=== PATIENT | male | born 1960 | race African-American/Black ===

== ENCOUNTER 2016-05-26 10:30 | Inpatient (IN) | payer OTHER ==
[~2016-05-26] VITALS: Ht 172.7 cm; Wt 79.0 kg
[~2016-05-26 10:30] MED LIST: ASPIR-LOW81 MG PO; ASPIRIN81 M2 PO; ATORVASTATIN CA80 MG PO; CARVEDILOL12.5 MG PO; EFFIENT10 MG PO; GLIPIZIDE10 MG PO; LANTUS 3 M100 UNITS1 SC; LASIX40 MG PO; LEVEMIR100 UNIT/1 SC; LEVEMIR100 UNIT/2 SC; LISINOPRIL PO; LISINOPRIL10 MG PO; METFORMIN HCL500 MG PO; METOPROLOL PO; NOVLOG SC; NOVOLOG 10100 UNITS/ SC
[2016-05-26 11:25] LABS: BASOPHIL COUNT 0.1 K/uL (0-0.1); EOSINOPHIL (%) 3.9 % (0-5); EOSINOPHIL COUNT 0.2 K/uL (0-0.3); HEMATOCRIT 35.4 % (38.0-50.0); IMMATURE GRANULOCYTE (%) 0.2 % (0.0-0.7); IMMATURE GRANULOCYTE COUNT 0.1 K/uL; LYMPHOCYTE COUNT 1.4 K/uL (1.0-2.8); MCH 29.1 PG (29.0-34.0); MCHC 33.3 G/DL (30.0-36.0); MCV 87.4 FL (86-99); MEAN PLAT.VOLUME 11.4 uM^3 (9.0-12.4); MONOCYTE (%) 8.5 % (3-12); MONOCYTE COUNT 0.4 K/uL (0-0.8); NEUTROPHIL (%) 57.8 % (45-76); NEUTROPHIL COUNT 2.8 K/uL (1.8-6.4); PLATELET COUNT 177 K/uL (156-360); RBC DIS.WIDTH-CV 13.7 % (11.8-14.6); RBC DIS.WIDTH-SD 42.4 % (39-53); RED BLOOD COUNT 4.05 M/uL (4.00-5.50); WHITE BLOOD COUNT 4.8 K/uL (4.1-10.2)
[2016-05-26 11:35] LABS: INTER. NORMALIZED RATIO 1.1; PROTHROMBIN TIME 10.9 (9.2-11.2)
[2016-05-26 11:36] LABS: CHLORIDE 109 mEq/L (99-109); POTASSIUM 4.3 mEq/L (3.7-5.4); SODIUM 139 mEq/L (136-147)
[2016-05-26 11:38] LABS: GLUCOSE 151 mg/dL (70-99)
[2016-05-26 11:40] LABS: ANION GAP 6 MEQ/L (2-14)
[2016-05-26 11:42] LABS: GFR ESTIMATE (CALCULATED) > 59 mL/min/
[2016-05-26 11:43] LABS: UREA NITROGEN (BUN) 11 mg/dL (9-23)
[2016-05-26 11:50] LABS: TROP-I INTERPRETATION POSITIVE
[2016-05-26] MEDS ORDERED: EFFIENT10 MG PO (12:16)
[2016-05-26] MEDS ORDERED: LASIX40 MG PO (12:17)
[2016-05-26] MEDS ORDERED: LO-DOSE ASPIRIN81 M2 PO (12:17)
[2016-05-26] MEDS ORDERED: PRINIVIL20 MG PO (12:17)
[2016-05-26] MEDS ORDERED: CLOPIDOGREL75 MG PO (12:17)
[2016-05-26] MEDS ORDERED: LANTUS 10100 UNITS/ SC (12:22)
[2016-05-26 13:47] LABS: MAGNESIUM 1.7 mg/dL (1.3-2.7)
[2016-05-26 14:45] VITALS: BP 160/93
[2016-05-26 14:49] VITALS: BP 160/93
[2016-05-26 17:47] LABS: POINT-OF-CARE USER ID NUTSLF44
[2016-05-26 19:03] LABS: TROP-I INTERPRETATION POSITIVE
[2016-05-26 19:04] LABS: TROPONIN-I 2.88 ng/mL (0.0-0.30)
[2016-05-26 20:00] VITALS: BP 157/94
[2016-05-26 21:03] LABS: POINT-OF-CARE METER ID UU14174216
[2016-05-27] VITALS: BP 144/82
[2016-05-27 05:08] VITALS: BP 150/69
[2016-05-27 05:29] LABS: POINT-OF-CARE METER ID UU13113781
[2016-05-27 06:08] LABS: GLUCOSE 199 mg/dL (70-99)
[2016-05-27 07:30] VITALS: BP 122/68
[2016-05-27 09:35] LABS: GLUCOSE 88 mg/dL (70-99)
[2016-05-27 11:28] LABS: POINT-OF-CARE METER ID UU13113781
[2016-05-27 11:28] LABS: POINT-OF-CARE METER ID UU13113698
[2016-05-27 15:06] LABS: ADD MIUA? YES; BILIRUBIN NEGATIVE; BLOOD LARGE; COLOR YELLOW ((YELLOW)); GLUCOSE (STRIP) NEGATIVE; KETONES NEGATIVE; LEUKOCYTES NEGATIVE; NITRITE NEGATIVE; PH, URINE 5.5 (5-8); PROTEIN (STRIP) 300; SPECIFIC GRAVITY 1.017 (1.000-1.030)
[2016-05-27 15:31] LABS: BACTERIA RARE; CASTS PRESENT /LPF; COARSE GRANULAR CASTS 0-5 /LPF; CRYSTALS NONE SEEN; EPITHELIAL CELLS RARE; HYALINE CASTS 0-5 /LPF; MUCUS 1+; UCUL ADDED? NO; WHITE BLOOD CELLS RARE /HPF (0-5)
[2016-05-27 20:00] VITALS: BP 153/88
[2016-05-27 23:55] VITALS: BP 127/73
[2016-05-28 04:00] VITALS: BP 130/62
[2016-05-28 06:49] LABS: EOSINOPHIL (%) 2.3 % (0-5); EOSINOPHIL COUNT 0.1 K/uL (0-0.3); HEMATOCRIT 33.1 % (38.0-50.0); IMMATURE GRANULOCYTE (%) 0.4 % (0.0-0.7); LYMPHOCYTE COUNT 1.2 K/uL (1.0-2.8); MCH 28.8 PG (29.0-34.0); MCHC 32.9 G/DL (30.0-36.0); MCV 87.6 FL (86-99); MEAN PLAT.VOLUME 11.8 uM^3 (9.0-12.4); MONOCYTE (%) 7.6 % (3-12); MONOCYTE COUNT 0.4 K/uL (0-0.8); NEUTROPHIL (%) 67.3 % (45-76); NEUTROPHIL COUNT 3.6 K/uL (1.8-6.4); PLATELET COUNT 160 K/uL (156-360); RBC DIS.WIDTH-CV 14.1 % (11.8-14.6); RBC DIS.WIDTH-SD 44.9 % (39-53); RED BLOOD COUNT 3.78 M/uL (4.00-5.50); WHITE BLOOD COUNT 5.3 K/uL (4.1-10.2)
[2016-05-28 07:16] LABS: ALKALINE PHOSPHATASE 60 IU/L (3-129); ANION GAP 7 MEQ/L (2-14); CHLORIDE 108 MEQ/L (99-109); GFR ESTIMATE (CALCULATED) > 59 mL/min/; SAMPLE HEMOLYSIS CHECK 0; SAMPLE ICTERIC CHECK 0; SAMPLE LIPEMIA CHECK 0; SODIUM 140 MEQ/L (136-147); TOTAL BILIRUBIN 0.6 MG/DL (0.0-1.0); UREA NITROGEN (BUN) 13 mg/dL (9-23)
[2016-05-28 07:18] LABS: POINT-OF-CARE METER ID UU13113781
[2016-05-28 07:19] LABS: GLUCOSE 51 mg/dL (70-99)
[2016-05-28 07:45] VITALS: BP 162/89
[2016-05-28 08:03] LABS: POINT-OF-CARE METER ID UU13113698
[2016-05-28 11:09] VITALS: BP 180/101
[2016-05-28 11:10] LABS: POINT-OF-CARE METER ID UU13113781
[2016-05-28 13:18] LABS: POINT-OF-CARE METER ID UU14174216
[2016-05-28 15:40] VITALS: BP 140/70; BP 173/93
[2016-05-28 16:02] LABS: POINT-OF-CARE METER ID UU13113698
[2016-05-28 19:45] VITALS: BP 168/90
[2016-05-28 21:23] LABS: POINT-OF-CARE METER ID UU13113781
[2016-05-28 23:49] VITALS: BP 145/86
[2016-05-29 03:52] LABS: POINT-OF-CARE METER ID UU13113781
[2016-05-29 04:20] VITALS: BP 141/77
[2016-05-29 06:12] LABS: EOSINOPHIL (%) 3.3 % (0-5); EOSINOPHIL COUNT 0.2 K/uL (0-0.3); HEMATOCRIT 32.1 % (38.0-50.0); IMMATURE GRANULOCYTE (%) 0.3 % (0.0-0.7); LYMPHOCYTE COUNT 2.3 K/uL (1.0-2.8); MCH 28.8 PG (29.0-34.0); MCV 87.2 FL (86-99); MEAN PLAT.VOLUME 11.7 uM^3 (9.0-12.4); MONOCYTE (%) 10.2 % (3-12); MONOCYTE COUNT 0.6 K/uL (0-0.8); NEUTROPHIL (%) 46.8 % (45-76); NEUTROPHIL COUNT 2.7 K/uL (1.8-6.4); PLATELET COUNT 169 K/uL (156-360); RBC DIS.WIDTH-CV 13.9 % (11.8-14.6); RBC DIS.WIDTH-SD 44.5 % (39-53); RED BLOOD COUNT 3.68 M/uL (4.00-5.50); WHITE BLOOD COUNT 5.8 K/uL (4.1-10.2)
[2016-05-29 06:43] LABS: ANION GAP 9 MEQ/L (2-14); CHLORIDE 105 MEQ/L (99-109); GFR ESTIMATE (CALCULATED) > 59 mL/min/; GLUCOSE 73 mg/dL (70-99); SAMPLE HEMOLYSIS CHECK 0; SAMPLE ICTERIC CHECK 0; SAMPLE LIPEMIA CHECK 0; SODIUM 140 MEQ/L (136-147); UREA NITROGEN (BUN) 12 mg/dL (9-23)
[2016-05-29 07:38] LABS: POINT-OF-CARE METER ID UU14174216
[2016-05-29 08:15] VITALS: BP 170/84
[2016-05-29 10:37] LABS: IRON 42 MCG/DL (35-150)
[2016-05-29 10:42] LABS: ABSOLUTE RETICULOCYTE CT. 0.07 M/uL (0.02-0.08); IMM.RETIC FRACTION 17.3 % (3-19); RETICULOCYTE COUNT 1.9 % (0.5-1.8)
[2016-05-29 11:42] LABS: POINT-OF-CARE METER ID UU13113698
[2016-05-29 11:42] LABS: FERRITIN 118 NG/ML (22-322)
[2016-05-29 11:55] VITALS: BP 145/86
[2016-05-29 16:22] VITALS: BP 130/74
[2016-05-29 16:46] LABS: POINT-OF-CARE METER ID UU13113698
[2016-05-29 19:45] VITALS: BP 154/88
[2016-05-29 23:54] VITALS: BP 135/90
[2016-05-30 03:57] LABS: POINT-OF-CARE METER ID UU14174216
[2016-05-30 04:22] VITALS: BP 114/56
[2016-05-30 05:35] LABS: EOSINOPHIL (%) 3.5 % (0-5); EOSINOPHIL COUNT 0.2 K/uL (0-0.3); HEMATOCRIT 32.2 % (38.0-50.0); IMMATURE GRANULOCYTE (%) 0.3 % (0.0-0.7); LYMPHOCYTE COUNT 2.4 K/uL (1.0-2.8); MCH 28.7 PG (29.0-34.0); MCHC 32.6 G/DL (30.0-36.0); MEAN PLAT.VOLUME 12.1 uM^3 (9.0-12.4); MONOCYTE (%) 9.6 % (3-12); MONOCYTE COUNT 0.6 K/uL (0-0.8); NEUTROPHIL COUNT 2.6 K/uL (1.8-6.4); PLATELET COUNT 173 K/uL (156-360); RBC DIS.WIDTH-CV 13.7 % (11.8-14.6); RBC DIS.WIDTH-SD 44.1 % (39-53); RED BLOOD COUNT 3.66 M/uL (4.00-5.50); WHITE BLOOD COUNT 5.7 K/uL (4.1-10.2)
[2016-05-30 06:05] LABS: ANION GAP 7 MEQ/L (2-14); CHLORIDE 104 MEQ/L (99-109); GFR ESTIMATE (CALCULATED) > 59 mL/min/; POTASSIUM 4.2 MEQ/L (3.7-5.4); SAMPLE HEMOLYSIS CHECK 0; SAMPLE ICTERIC CHECK 0; SAMPLE LIPEMIA CHECK 0; SODIUM 137 MEQ/L (136-147); UREA NITROGEN (BUN) 14 mg/dL (9-23)
[2016-05-30 06:11] LABS: GLUCOSE 112 mg/dL (70-99)
[2016-05-30 08:09] VITALS: BP 143/90
[2016-05-30] MEDS ORDERED: CARVEDILOL25 MG PO (09:23)
[2016-05-30] MEDS ORDERED: NICOTINE PATCH1 EAC2 TD (09:23)
[2016-05-30] MEDS ORDERED: IMDUR30 MG PO (09:23)
[2016-05-30] MEDS ORDERED: FERROUS SULFAT325 MG PO (09:23)
[2016-05-30] MEDS ORDERED: FOLIC ACID1 MG PO (09:24)
[2016-05-30] MEDS ORDERED: CYANOCOBALAM1000 MCG PO (09:24)
[2016-05-30 11:35] LABS: POINT-OF-CARE METER ID UU13113698
== END 2016-05-30 13:00 | disposition home or self-care (01) | DRG 281 ==
LOC: EME 10:30 → EDOF 12:34 → 4EAST 12:34 → EDOF 12:34 → 4EAST 14:35
PROVIDERS: Emergency Medicine; Hospitalist; Internal Medicine
DX: I21.4 Non-ST elevation (NSTEMI) myocardial infarction (principal); E11.649 Type 2 diabetes mellitus with hypoglycemia without coma; I11.0 Hypertensive heart disease with heart failure; I50.22 Chronic systolic (congestive) heart failure; E78.5 Hyperlipidemia, unspecified; F17.200 Nicotine dependence, unspecified, uncomplicated; D64.9 Anemia, unspecified; I25.10 Atherosclerotic heart disease of native coronary artery without angina pectoris; I25.5 Ischemic cardiomyopathy; Z79.4 Long term (current) use of insulin; Z95.5 Presence of coronary angioplasty implant and graft; Z79.82 Long term (current) use of aspirin; Z79.02 Long term (current) use of antithrombotics/antiplatelets; Z91.14 Patient's other noncompliance with medication regimen
CPT/HCPCS: 36415; 71020; 80048; 80053; 81003; 82565; 82607; 82728; 82746; 82948; 83540; 83735; 84466; 84484; 84520; 84999; 85025; 85027; 85045; 85610; 85730; 93005; 99281; 99285; J1815

== ENCOUNTER 2016-08-09 08:55 | Emergency (ER) | payer OTHER ==
[~2016-08-09] VITALS: Ht 172.7 cm; Wt 84.8 kg
[~2016-08-09 08:55] MED LIST changes: +CARVEDILOL25 MG PO; +CLOPIDOGREL75 MG PO; +CYANOCOBALAM1000 MCG PO; +FERROUS SULFAT325 MG PO; +FOLIC ACID1 MG PO; +IMDUR30 MG PO; +LANTUS 10100 UNITS/ SC; +LO-DOSE ASPIRIN81 M2 PO; +NICOTINE PATCH1 EAC2 TD; +PRINIVIL20 MG PO
[2016-08-09] MEDS ORDERED: METFORMIN HCL500 MG PO (09:40)
[2016-08-09 10:50] VITALS: BP 152/101
== END 2016-08-09 10:51 | disposition home or self-care (01) ==
LOC: EME → EDBD 08:55 → EME 08:55
DX: I10 Essential (primary) hypertension (principal); E11.9 Type 2 diabetes mellitus without complications; E78.5 Hyperlipidemia, unspecified; I25.2 Old myocardial infarction; Z98.61 Coronary angioplasty status; Z87.891 Personal history of nicotine dependence; Z79.82 Long term (current) use of aspirin; Z79.4 Long term (current) use of insulin
CPT/HCPCS: 99281; 99284

== ENCOUNTER 2016-09-20 08:19 | Observation (INO) | payer OTHER ==
[~2016-09-20] VITALS: Ht 172.7 cm; Wt 79.3 kg
[2016-09-20 09:40] LABS: MCH 28.2 PG (29.0-34.0); MCHC 32.9 G/DL (30.0-36.0); MCV 85.8 FL (86-99); RBC DIS.WIDTH-CV 13.2 % (11.8-14.6); RBC DIS.WIDTH-SD 41.5 % (39-53); RED BLOOD COUNT 4.43 M/uL (4.00-5.50); WHITE BLOOD COUNT 5.2 K/uL (4.1-10.2)
[2016-09-20 09:47] LABS: D-DIMER ELISA 0.47 mg/L FEU (< 0.57)
[2016-09-20 09:55] LABS: CHLORIDE 99 mEq/L (99-109); POTASSIUM 4.5 mEq/L (3.7-5.4); SODIUM 134 mEq/L (136-147)
[2016-09-20 09:58] LABS: ANION GAP 8 MEQ/L (2-14)
[2016-09-20 10:00] LABS: GFR ESTIMATE (CALCULATED) > 59 mL/min/
[2016-09-20 10:01] LABS: TROP-I INTERPRETATION NEGATIVE; TROPONIN-I 0.02 ng/mL (0.0-0.30); UREA NITROGEN (BUN) 17 mg/dL (9-23)
[2016-09-20 10:07] LABS: GLUCOSE 551 mg/dL (70-99)
[2016-09-20 10:36] LABS: MEAN PLAT.VOLUME 12.8 uM^3 (9.0-12.4); PLATELET COUNT 159 K/uL (156-360)
[2016-09-20 10:41] LABS: PLAT.SUFFICIENCY ADEQUATE
[2016-09-20] MEDS ORDERED: IMDUR30 MG PO (11:32)
[2016-09-20] MEDS ORDERED: ZESTRIL30 MG PO (11:33)
[2016-09-20] MEDS ORDERED: FOLIC ACID1 MG PO (11:34)
[2016-09-20] MEDS ORDERED: GLIPIZIDE10 MG PO (11:35)
[2016-09-20 12:02] LABS: POINT-OF-CARE METER ID UU13113702
[2016-09-20 12:55] VITALS: BP 158/101
[2016-09-20 14:21] LABS: POINT-OF-CARE METER ID UU14162513
[2016-09-20 14:59] VITALS: BP 166/99
[2016-09-20 16:24] LABS: TROP-I INTERPRETATION NEGATIVE; TROPONIN-I 0.03 ng/mL (0.0-0.30)
[2016-09-20 17:11] LABS: POINT-OF-CARE METER ID UU13113831
[2016-09-20 20:46] VITALS: BP 156/88
[2016-09-20 21:16] LABS: POINT-OF-CARE METER ID UU14162513
[2016-09-20 22:31] LABS: TROP-I INTERPRETATION NEGATIVE; TROPONIN-I 0.03 ng/mL (0.0-0.30)
[2016-09-21 00:36] VITALS: BP 158/92
[2016-09-21 04:45] VITALS: BP 129/72
[2016-09-21 07:16] VITALS: BP 141/89
[2016-09-21 08:58] LABS: POINT-OF-CARE METER ID UU14162513
[2016-09-21 09:22] LABS: POINT-OF-CARE METER ID UU14162513
[2016-09-21 10:11] LABS: ANION GAP 6 MEQ/L (2-14); CHLORIDE 106 MEQ/L (99-109); GFR ESTIMATE (CALCULATED) > 59 mL/min/; POTASSIUM 3.8 MEQ/L (3.7-5.4); SAMPLE HEMOLYSIS CHECK 0; SAMPLE ICTERIC CHECK 0; SAMPLE LIPEMIA CHECK 0; UREA NITROGEN (BUN) 16 mg/dL (9-23)
[2016-09-21 10:13] LABS: GLUCOSE 93 mg/dL (70-99); SODIUM 141 MEQ/L (136-147)
[2016-09-21 12:24] VITALS: BP 163/87
[2016-09-21] MEDS ORDERED: RANEXA500 MG PO (13:44)
[2016-09-21] MEDS ORDERED: NITROSTAT0.4 MG SL (13:44)
== END 2016-09-21 14:52 | disposition home or self-care (01) ==
LOC: EME 08:19 → EDOF 10:40 → 5WEST 10:40
PROVIDERS: Hospitalist; Internal Medicine
DX: R07.9 Chest pain, unspecified (principal); N17.9 Acute kidney failure, unspecified; I42.9 Cardiomyopathy, unspecified; E87.1 Hypo-osmolality and hyponatremia; E11.65 Type 2 diabetes mellitus with hyperglycemia; I11.0 Hypertensive heart disease with heart failure; I50.9 Heart failure, unspecified; I25.10 Atherosclerotic heart disease of native coronary artery without angina pectoris; E78.5 Hyperlipidemia, unspecified; R42 Dizziness and giddiness; I25.2 Old myocardial infarction; Z95.5 Presence of coronary angioplasty implant and graft; Z79.4 Long term (current) use of insulin; Z87.891 Personal history of nicotine dependence
CPT/HCPCS: 71020; 80048; 82948; 84484; 85027; 85379; 93005; 99281; 99285; G0378; J1644; J1815; J7030

== ENCOUNTER 2016-11-22 16:34 | Inpatient (IN) | payer OTHER ==
[~2016-11-22] VITALS: Ht 172.7 cm; Wt 77.1 kg
[~2016-11-22 16:34] MED LIST changes: +NITROSTAT0.4 MG SL; +RANEXA500 MG PO; +ZESTRIL30 MG PO
[2016-11-22 17:33] LABS: HEMATOCRIT 34.6 % (38.0-50.0); MCH 27.9 PG (29.0-34.0); MCHC 32.9 G/DL (30.0-36.0); MCV 84.8 FL (86-99); MEAN PLAT.VOLUME 12.9 uM^3 (9.0-12.4); PLATELET COUNT 169 K/uL (156-360); RBC DIS.WIDTH-SD 39.9 % (39-53); RED BLOOD COUNT 4.08 M/uL (4.00-5.50); WHITE BLOOD COUNT 5.4 K/uL (4.1-10.2)
[2016-11-22 17:41] LABS: CHLORIDE 93 mEq/L (99-109); POTASSIUM 4.1 mEq/L (3.7-5.4); SODIUM 124 mEq/L (136-147)
[2016-11-22 17:44] LABS: ANION GAP 9 MEQ/L (2-14)
[2016-11-22 17:47] LABS: GFR ESTIMATE (CALCULATED) > 59 mL/min/
[2016-11-22 17:48] LABS: UREA NITROGEN (BUN) 11 mg/dL (9-23)
[2016-11-22 17:53] LABS: TROP-I INTERPRETATION NEGATIVE; TROPONIN-I 0.02 ng/mL (0.0-0.30)
[2016-11-22 18:02] LABS: GLUCOSE 740 mg/dL (70-99)
[2016-11-22 19:56] LABS: POINT-OF-CARE METER ID UU13113747
[2016-11-22 20:59] LABS: TOTAL BILIRUBIN 0.9 mg/dL (0.0-1.0)
[2016-11-22 21:01] LABS: ALKALINE PHOSPHATASE 79 IU/L (3-129)
[2016-11-22 21:03] LABS: DIRECT BILIRUBIN 0.3 mg/dL (0.0-0.3)
[2016-11-22 21:04] LABS: LIPASE 15 U/L (1.0-51.0)
[2016-11-22 21:16] VITALS: BP 164/88
[2016-11-22 22:06] LABS: POINT-OF-CARE METER ID UU13113717
[2016-11-22 23:24] LABS: ANION GAP 9 MEQ/L (2-14); CHLORIDE 95 MEQ/L (99-109); POTASSIUM 3.6 MEQ/L (3.7-5.4); SAMPLE HEMOLYSIS CHECK 0; SAMPLE ICTERIC CHECK 0; SAMPLE LIPEMIA CHECK 0; UREA NITROGEN (BUN) 10 mg/dL (9-23)
[2016-11-22 23:28] LABS: GFR ESTIMATE (CALCULATED) > 59 mL/min/; GLUCOSE 364 mg/dL (70-99); SODIUM 131 MEQ/L (136-147)
[2016-11-23 00:15] LABS: TROP-I INTERPRETATION NEGATIVE; TROPONIN-I 0.05 ng/mL (0.0-0.30)
[2016-11-23 02:11] LABS: POINT-OF-CARE METER ID UU13113717
[2016-11-23 03:07] LABS: POINT-OF-CARE METER ID UU13113717
[2016-11-23 03:52] VITALS: BP 141/77
[2016-11-23 05:53] LABS: HEMATOCRIT 34.1 % (38.0-50.0); MCH 28.8 PG (29.0-34.0); MCV 84.6 FL (86-99); RBC DIS.WIDTH-CV 13.1 % (11.8-14.6); RBC DIS.WIDTH-SD 40.1 % (39-53); RED BLOOD COUNT 4.03 M/uL (4.00-5.50); WHITE BLOOD COUNT 6.4 K/uL (4.1-10.2)
[2016-11-23 05:59] LABS: POINT-OF-CARE METER ID UU13113717
[2016-11-23 06:22] LABS: ANION GAP 9 MEQ/L (2-14); CHLORIDE 99 MEQ/L (99-109); GFR ESTIMATE (CALCULATED) > 59 mL/min/; GLUCOSE 189 mg/dL (70-99); POTASSIUM 3.3 MEQ/L (3.7-5.4); SAMPLE HEMOLYSIS CHECK 0; SAMPLE ICTERIC CHECK 0; SAMPLE LIPEMIA CHECK 0; SODIUM 136 MEQ/L (136-147); UREA NITROGEN (BUN) 11 mg/dL (9-23)
[2016-11-23 07:12] LABS: MEAN PLAT.VOLUME 12.4 uM^3 (9.0-12.4); PLATELET COUNT 170 K/uL (156-360)
[2016-11-23 07:17] LABS: TROP-I INTERPRETATION NEGATIVE; TROPONIN-I 0.05 ng/mL (0.0-0.30)
[2016-11-23 07:19] VITALS: BP 133/84
[2016-11-23 10:35] LABS: POINT-OF-CARE METER ID UU13113717
[2016-11-23] MEDS ORDERED: ZESTRIL40 MG PO (10:48)
[2016-11-23] MEDS ORDERED: FEOSOL325 MG PO (11:06)
[2016-11-23 11:18] VITALS: BP 143/67
[2016-11-23] MEDS ORDERED: RANEXA500 MG PO (15:04)
[2016-11-23] MEDS ORDERED: GABAPENTIN100 MG PO (15:05)
[2016-11-23 15:11] VITALS: BP 105/63
== END 2016-11-23 17:02 | disposition home or self-care (01) | DRG 303 ==
LOC: EME → EDBD 16:34 → EME 16:34 → EDOF 20:16 → 5SOUTH 21:08
PROVIDERS: Emergency Medicine; Hospitalist; Internal Medicine
DX: I25.119 Atherosclerotic heart disease of native coronary artery with unspecified angina pectoris (principal); E11.42 Type 2 diabetes mellitus with diabetic polyneuropathy; E11.65 Type 2 diabetes mellitus with hyperglycemia; I11.0 Hypertensive heart disease with heart failure; I50.22 Chronic systolic (congestive) heart failure; I25.5 Ischemic cardiomyopathy; E78.5 Hyperlipidemia, unspecified; D64.9 Anemia, unspecified; G43.909 Migraine, unspecified, not intractable, without status migrainosus; I25.2 Old myocardial infarction; Z79.4 Long term (current) use of insulin; Z79.84 Long term (current) use of oral hypoglycemic drugs; Z87.891 Personal history of nicotine dependence; Z95.5 Presence of coronary angioplasty implant and graft
CPT/HCPCS: 71020; 80048; 80048 91; 80076; 82948; 83690; 83930; 84484; 85027; 93005; 99202; 99281; 99285; J1644; J1815; J2270

== ENCOUNTER 2017-07-13 11:48 | Inpatient (IN) | payer OTHER ==
[~2017-07-13] VITALS: Ht 172.7 cm; Wt 69.1 kg
[~2017-07-13 11:48] MED LIST changes: +FEOSOL325 MG PO; +GABAPENTIN100 MG PO; +ZESTRIL40 MG PO
[2017-07-13 12:36] LABS: HEMATOCRIT 41.3 % (38.0-50.0); HEMOGLOBIN 13.8 G/DL (12.5-16.6); MCHC 33.4 G/DL (30.0-36.0); MCV 86.8 FL (86-99); PLATELET COUNT 222 K/uL (156-360); RBC DIS.WIDTH-CV 12.6 % (11.8-14.6); RBC DIS.WIDTH-SD 40.2 % (39-53); RED BLOOD COUNT 4.76 M/uL (4.00-5.50); WHITE BLOOD COUNT 18.4 K/uL (4.1-10.2)
[2017-07-13 12:43] LABS: CHLORIDE 92 mEq/L (99-109); POTASSIUM 4.7 mEq/L (3.7-5.4); SODIUM 131 mEq/L (136-147)
[2017-07-13 12:44] LABS: GLUCOSE 373 mg/dL (70-99)
[2017-07-13 12:48] LABS: CREATININE 1.5 mg/dL (0.6-1.3); GFR ESTIMATE (CALCULATED) > 59 mL/min/ (58.99-99999)
[2017-07-13 12:49] LABS: UREA NITROGEN (BUN) 25 mg/dL (9-23)
[2017-07-13 12:56] LABS: TROP-I INTERPRETATION NEGATIVE; TROPONIN-I 0.01 ng/mL (0.0-0.30)
[2017-07-13 15:27] LABS: SERUM ETHYL ALCOHOL < 10 mg/dL
[2017-07-13] MEDS ORDERED: ZANTAC150 MG PO (15:32)
[2017-07-13] MEDS ORDERED: GLUCOPHAGE500 MG PO (15:35)
[2017-07-13] MEDS ORDERED: NEURONTIN100 MG PO (15:41)
[2017-07-13] MEDS ORDERED: RANEXA500 MG PO (15:43)
[2017-07-13 17:45] VITALS: BP 136/75
[2017-07-13 19:53] VITALS: BP 115/67
[2017-07-13 19:55] LABS: HEMATOCRIT 38.3 % (38.0-50.0); HEMOGLOBIN 12.6 G/DL (12.5-16.6); MCV 86.3 FL (86-99)
[2017-07-13 20:23] LABS: TROP-I INTERPRETATION NEGATIVE; TROPONIN-I 0.03 ng/mL (0.0-0.30)
[2017-07-13 23:42] VITALS: BP 180/98
[2017-07-14 01:15] LABS: TROP-I INTERPRETATION NEGATIVE; TROPONIN-I 0.02 ng/mL (0.0-0.30)
[2017-07-14 04:56] VITALS: BP 97/53
[2017-07-14 06:16] LABS: HEMATOCRIT 33.2 % (38.0-50.0); HEMOGLOBIN 10.9 G/DL (12.5-16.6); MCH 27.9 PG (29.0-34.0); MCHC 32.8 G/DL (30.0-36.0); MCV 85.1 FL (86-99); PLATELET COUNT 214 K/uL (156-360); RBC DIS.WIDTH-CV 12.5 % (11.8-14.6); RBC DIS.WIDTH-SD 39.2 % (39-53)
[2017-07-14 06:49] LABS: CHLORIDE 94 MEQ/L (99-109); CREATININE 1.7 MG/DL (0.6-1.3); GFR ESTIMATE (CALCULATED) 54 mL/min/ (58.99-99999); POTASSIUM 4.8 MEQ/L (3.7-5.4); SODIUM 130 MEQ/L (136-147)
[2017-07-14 06:52] LABS: GLUCOSE 403 mg/dL (70-99); UREA NITROGEN (BUN) 47 mg/dL (9-23)
[2017-07-14 07:59] VITALS: BP 99/61
[2017-07-14 09:12] LABS: TROP-I INTERPRETATION NEGATIVE; TROPONIN-I 0.02 ng/mL (0.0-0.30)
[2017-07-14 09:22] LABS: GLUCOSE 379 mg/dL (70-99)
[2017-07-14 12:10] VITALS: BP 105/99
[2017-07-14 16:30] VITALS: BP 113/68
[2017-07-14 19:40] VITALS: BP 123/57
[2017-07-14 23:54] VITALS: BP 135/78
[2017-07-15 04:39] VITALS: BP 118/66
[2017-07-15 06:34] LABS: HEMATOCRIT 35.3 % (38.0-50.0); HEMOGLOBIN 11.4 G/DL (12.5-16.6); MCH 27.9 PG (29.0-34.0); MCHC 32.3 G/DL (30.0-36.0); MCV 86.5 FL (86-99); PLATELET COUNT 220 K/uL (156-360); RBC DIS.WIDTH-CV 12.6 % (11.8-14.6); RBC DIS.WIDTH-SD 40.2 % (39-53); RED BLOOD COUNT 4.08 M/uL (4.00-5.50); WHITE BLOOD COUNT 13.9 K/uL (4.1-10.2)
[2017-07-15 07:29] VITALS: BP 137/78
[2017-07-15 07:32] LABS: CHLORIDE 101 MEQ/L (99-109); CREATININE 1.6 MG/DL (0.6-1.3); GFR ESTIMATE (CALCULATED) 58 mL/min/ (58.99-99999); SODIUM 136 MEQ/L (136-147); UREA NITROGEN (BUN) 46 mg/dL (9-23); VANCOMYCIN, TROUGH 12.4 MCG/ML (10-20)
[2017-07-15 07:33] LABS: GLUCOSE 64 mg/dL (70-99); POTASSIUM 3.8 MEQ/L (3.7-5.4)
[2017-07-15 19:28] VITALS: BP 138/76
[2017-07-15 23:23] VITALS: BP 151/85
[2017-07-16 06:38] LABS: HEMATOCRIT 29.7 % (38.0-50.0); HEMOGLOBIN 9.9 G/DL (12.5-16.6); MCHC 33.3 G/DL (30.0-36.0); MCV 87.1 FL (86-99); PLATELET COUNT 188 K/uL (156-360); RBC DIS.WIDTH-CV 12.8 % (11.8-14.6); RBC DIS.WIDTH-SD 40.9 % (39-53); RED BLOOD COUNT 3.41 M/uL (4.00-5.50)
[2017-07-16 07:13] LABS: ALBUMIN 1.9 G/DL (3.2-4.8); ALKALINE PHOSPHATASE 92 IU/L (3-129); ALT (GPT) 5 IU/L (3-49); AST (GOT) 11 IU/L (2-34); CHLORIDE 101 MEQ/L (99-109); CREATININE 1.2 MG/DL (0.6-1.3); GFR ESTIMATE (CALCULATED) > 59 mL/min/ (58.99-99999); GLUCOSE 174 mg/dL (70-99); POTASSIUM 3.9 MEQ/L (3.7-5.4); SODIUM 135 MEQ/L (136-147); TOTAL BILIRUBIN 0.3 MG/DL (0.0-1.0); TOTAL PROTEIN 4.3 G/DL (6.4-8.3); UREA NITROGEN (BUN) 28 mg/dL (9-23)
[2017-07-16 07:54] VITALS: BP 145/85
[2017-07-16 11:11] LABS: HEMOGLOBIN A1c (GLYCOHEMOGLOB) 15.7 % (Below 5.7)
[2017-07-16 11:23] LABS: HEPATITIS B SURFACE ANTIGEN Nonreactive; HEPATITIS C ANTIBODY Nonreactive
[2017-07-16 11:24] LABS: ANTI-HEPATITIS A VIRUS (IGM) Nonreactive; ANTI-HEPATITIS B CORE (IGM) Nonreactive
[2017-07-16 16:00] VITALS: BP 130/69
[2017-07-17] VITALS: BP 138/75
[2017-07-17 05:57] LABS: HEMOGLOBIN 9.3 G/DL (12.5-16.6); MCH 28.4 PG (29.0-34.0); MCHC 32.1 G/DL (30.0-36.0); MCV 88.4 FL (86-99); PLATELET COUNT 192 K/uL (156-360); RBC DIS.WIDTH-CV 12.7 % (11.8-14.6); RBC DIS.WIDTH-SD 41.5 % (39-53); RED BLOOD COUNT 3.28 M/uL (4.00-5.50); WHITE BLOOD COUNT 7.1 K/uL (4.1-10.2)
[2017-07-17 07:56] VITALS: BP 119/64
[2017-07-17 12:35] LABS: C DIFF TOXIN NEGATIVE (NEGATIVE)
[2017-07-17 16:00] VITALS: BP 140/78
[2017-07-17 23:48] VITALS: BP 136/65
[2017-07-18 06:10] LABS: HEMOGLOBIN 9.3 G/DL (12.5-16.6); MCH 27.9 PG (29.0-34.0); MCHC 32.1 G/DL (30.0-36.0); MCV 87.1 FL (86-99); PLATELET COUNT 195 K/uL (156-360); RBC DIS.WIDTH-CV 12.7 % (11.8-14.6); RED BLOOD COUNT 3.33 M/uL (4.00-5.50); WHITE BLOOD COUNT 5.7 K/uL (4.1-10.2)
[2017-07-18 06:31] LABS: CHLORIDE 103 MEQ/L (99-109); CREATININE 1.3 MG/DL (0.6-1.3); GFR ESTIMATE (CALCULATED) > 59 mL/min/ (58.99-99999); GLUCOSE 123 mg/dL (70-99); POTASSIUM 3.8 MEQ/L (3.7-5.4); SODIUM 136 MEQ/L (136-147); UREA NITROGEN (BUN) 22 mg/dL (9-23)
[2017-07-18 07:25] VITALS: BP 143/71
[2017-07-18 15:19] VITALS: BP 159/76
[2017-07-19] VITALS: BP 163/88
[2017-07-19 05:59] LABS: HEMATOCRIT 28.7 % (38.0-50.0); HEMOGLOBIN 9.5 G/DL (12.5-16.6); MCH 29.1 PG (29.0-34.0); MCHC 33.1 G/DL (30.0-36.0); PLATELET COUNT 223 K/uL (156-360); RBC DIS.WIDTH-CV 13.1 % (11.8-14.6); RBC DIS.WIDTH-SD 41.9 % (39-53); RED BLOOD COUNT 3.26 M/uL (4.00-5.50); WHITE BLOOD COUNT 4.7 K/uL (4.1-10.2)
[2017-07-19 07:12] VITALS: BP 152/78
[2017-07-19] MEDS ORDERED: PANTOPRAZOLE SO40 MG PO (09:56)
[2017-07-19] MEDS ORDERED: LASIX20 MG PO (11:16)
[2017-07-19 15:04] VITALS: BP 138/75
[2017-07-20 00:26] VITALS: BP 144/79
[2017-07-20 07:05] LABS: BASOPHIL (%) 1.1 % (0-1); BASOPHIL COUNT 0.1 K/uL (0-0.1); EOSINOPHIL (%) 4.4 % (0-5); EOSINOPHIL COUNT 0.2 K/uL (0-0.3); HEMATOCRIT 29.7 % (38.0-50.0); HEMOGLOBIN 9.4 G/DL (12.5-16.6); IMMATURE GRANULOCYTE (%) 1.1 % (0.0-0.7); LYMPHOCYTE (%) 32.4 % (15-42); LYMPHOCYTE COUNT 1.5 K/uL (1.0-2.8); MCH 27.8 PG (29.0-34.0); MCHC 31.6 G/DL (30.0-36.0); MCV 87.9 FL (86-99); MONOCYTE (%) 15.8 % (3-12); MONOCYTE COUNT 0.8 K/uL (0-0.8); NEUTROPHIL (%) 45.2 % (45-76); NEUTROPHIL COUNT 2.2 K/uL (1.8-6.4); PLATELET COUNT 229 K/uL (156-360); RBC DIS.WIDTH-CV 12.6 % (11.8-14.6); RBC DIS.WIDTH-SD 40.5 % (39-53); RED BLOOD COUNT 3.38 M/uL (4.00-5.50); WHITE BLOOD COUNT 4.8 K/uL (4.1-10.2)
[2017-07-20 07:33] LABS: CHLORIDE 100 MEQ/L (99-109); CREATININE 1.1 MG/DL (0.6-1.3); GFR ESTIMATE (CALCULATED) > 59 mL/min/ (58.99-99999); MAGNESIUM 1.5 mg/dl (1.3-2.7); SODIUM 135 MEQ/L (136-147); UREA NITROGEN (BUN) 16 mg/dL (9-23)
[2017-07-20 07:35] LABS: GLUCOSE 238 mg/dL (70-99); POTASSIUM 4.8 MEQ/L (3.7-5.4)
[2017-07-20 07:48] VITALS: BP 132/63
[2017-07-20] MEDS ORDERED: AMOX TR-K CLV1 EAC4 PO (11:27)
[2017-07-20 16:16] VITALS: BP 136/74
[2017-07-21 01:40] VITALS: BP 158/72
[2017-07-21 06:37] LABS: HEMATOCRIT 31.5 % (38.0-50.0); MCH 28.7 PG (29.0-34.0); MCHC 31.7 G/DL (30.0-36.0); MCV 90.5 FL (86-99); PLATELET COUNT 239 K/uL (156-360); RBC DIS.WIDTH-CV 12.7 % (11.8-14.6); RBC DIS.WIDTH-SD 41.6 % (39-53); RED BLOOD COUNT 3.48 M/uL (4.00-5.50); WHITE BLOOD COUNT 5.2 K/uL (4.1-10.2)
[2017-07-21 06:55] LABS: CHLORIDE 104 MEQ/L (99-109); CREATININE 1.1 MG/DL (0.6-1.3); GFR ESTIMATE (CALCULATED) > 59 mL/min/ (58.99-99999); GLUCOSE 210 mg/dL (70-99); SODIUM 135 MEQ/L (136-147); UREA NITROGEN (BUN) 15 mg/dL (9-23)
[2017-07-21 07:56] VITALS: BP 146/72
[2017-07-21] MEDS ORDERED: ZESTRIL20 MG PO (15:42)
[2017-07-21] MEDS ORDERED: NOVOLOG 10100 UNITS/ SC (15:44)
[2017-07-21 16:33] VITALS: BP 129/64
== END 2017-07-21 18:16 | DRG 603 ==
LOC: EME 11:48 → 5SOUTH 14:25 → EDOF 14:25 → 5SOUTH 14:25 → ENRESERV 14:26 → 5SOUTH 17:25
PROVIDERS: Internal Medicine; Internal Medicine Gastroenterology; Physician Assistant; Physician Assistant Medical; Physician Assistant Surgical
PROC: 0DB68ZX Excision of Stomach, Via Natural or Artificial Opening Endoscopic, Diagnostic (ICD-10-PCS; principal; 2017-07-14)
PROC: 0H98XZX Drainage of Buttock Skin, External Approach, Diagnostic (ICD-10-PCS; 2017-07-14)
DX: L02.31 Cutaneous abscess of buttock (principal); L03.317 Cellulitis of buttock; N17.9 Acute kidney failure, unspecified; R07.89 Other chest pain; I11.0 Hypertensive heart disease with heart failure; I50.22 Chronic systolic (congestive) heart failure; K70.30 Alcoholic cirrhosis of liver without ascites; I85.10 Secondary esophageal varices without bleeding; K20.9 Esophagitis, unspecified; K29.70 Gastritis, unspecified, without bleeding; K92.1 Melena; K92.0 Hematemesis; D50.9 Iron deficiency anemia, unspecified; Z91.11 Patient's noncompliance with dietary regimen; Z91.19 Patient's noncompliance with other medical treatment and regimen; E11.42 Type 2 diabetes mellitus with diabetic polyneuropathy; I25.5 Ischemic cardiomyopathy; I25.10 Atherosclerotic heart disease of native coronary artery without angina pectoris; I25.2 Old myocardial infarction; R00.0 Tachycardia, unspecified; F10.11 Alcohol abuse, in remission; G43.909 Migraine, unspecified, not intractable, without status migrainosus; R19.7 Diarrhea, unspecified; E78.5 Hyperlipidemia, unspecified; Z79.4 Long term (current) use of insulin; Z79.02 Long term (current) use of antithrombotics/antiplatelets; Z79.82 Long term (current) use of aspirin; Z80.0 Family history of malignant neoplasm of digestive organs; Z87.891 Personal history of nicotine dependence; Z95.5 Presence of coronary angioplasty implant and graft
CPT/HCPCS: 71046; 74176; 78582; 80048; 80053; 80074; 80202; 82140; 82272; 82565; 82948; 83036; 83605; 83735; 84484; 84999; 85014; 85018; 85025; 85027; 85379; 87040; 87070; 87075; 87076; 87185; 87205; 87493; 88305; 88342 TC; 90686; 93005; 97530 GO; 99281; 99284; A9540; A9567; C9113; G0480; J0295; J1815; J1956; J2270; J2405; J3010; J3370; J7030; J7040; J7050